=== PATIENT | male | born 1985 | race Two or more races ===

== ENCOUNTER 2020-06-10 12:35 | Emergency (ER) | payer OTHER ==
[~2020-06-10] VITALS: Ht 177.8 cm; Wt 80.3 kg
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
--- NOTE | 2020-06-10 13:01 | NUR ---
REPORT FROM LAVINIA MCNAMARA.
--- NOTE | 2020-06-10 13:08 | NUR ---
DR. SOUSA AT BEDSIDE FOR EVAL. PT IN NAD, VSS.
[2020-06-10] MEDS ORDERED: LIDOCAINE-MPF 1%, 5ML INFIL ONE (13:30)
[2020-06-10] MEDS ORDERED: LIDOCAINE-MPF 1%, 5ML ONE ×3 (13:49→16:22)
--- NOTE | 2020-06-10 16:26 | NUR ---
PA STUDENT AT BEDSIDE FOR LAC REPAIR.
[2020-06-10 17:48] VITALS: BP 114/80
== END 2020-06-10 18:04 | disposition home or self-care (01) ==
LOC: ED 13:42
DX: S72.402A Unspecified fracture of lower end of left femur, initial encounter for closed fracture (principal); S81.012A Laceration without foreign body, left knee, initial encounter; S50.812A Abrasion of left forearm, initial encounter; W01.0XXA Fall on same level from slipping, tripping and stumbling without subsequent striking against object, initial encounter; Y93.89 Activity, other specified; Y92.828 Other wilderness area as the place of occurrence of the external cause; Y99.8 Other external cause status
CPT/HCPCS: 12032; 99285